=== PATIENT | female | born 1955 | race Caucasian/White ===

== ENCOUNTER 2021-04-25 00:04 | Observation (INO) | payer MEDICARE, BC ==
[~2021-04-25] VITALS: Ht 167.6 cm; Wt 109.0 kg
--- NOTE | 2021-04-25 00:09 | NUR ---
MOVED TO ROOM 6 FOR TRIAGE.
[2021-04-25 00:48] LABS: HEMATOCRIT 37.8 % (37.0-47.0); HEMOGLOBIN 12.5 g/dl (12.0-16.0); IMMATURE GRANULOCYTES 0.1 % (0.0-5.0); MEAN CELL VOLUME 95.5 fL CALC (80.0-100.0); MEAN CORPUSCULAR HGB 31.6 pG CALC (26.0-32.0); MEAN CORPUSCULAR HGB CONC 33.1 g/dL CAL (32.0-36.0); NEUT# 3.61 thou/uL (2.00-7.15); RED BLOOD COUNT 3.96 mill/uL (4.20-5.60); RED CELL DISTRI WIDTH 12.6 % (11.5-15.5)
--- NOTE | 2021-04-25 00:53 | NUR ---
Reassessment of patient completed. No distress noted.
[2021-04-25 01:08] LABS: D-DIMER 0.47 mg/L (0.19-0.60); PROTHROMBIN TIME 10.1 SECONDS (9.0-12.5)
[2021-04-25 01:10] LABS: ALBUMIN 3.8 g/dL (3.2-5.0); ALKALINE PHOSPHATASE 68 u/l (38-126); AMYLASE 50 u/l (30-110); ANION GAP 12 (6-22 (CALC)); BILIRUBIN, TOTAL 0.8 mg/dL (0.0-1.4); BUN 15 mg/dL (8-23); BUN/CREATININE RATIO 24 (12-20 (CALC)); CARBON DIOXIDE 25 mmol/l (22-30); CHLORIDE 105 mmol/l (95-108); CREATININE 0.6 mg/dL (0.5-1.0); GFR > 60 ML/MIN (>=60 (CALC)); GFR FOR AFR.AMER. > 60 ML/MIN (>=60 (CALC)); LIPASE 193 u/l (23-300); POTASSIUM 3.7 mmol/l (3.5-5.1); SGOT/AST 21 u/l (9-36); SODIUM 138 mmol/l (137-146); TOTAL PROTEIN 6.7 g/dL (6.3-8.2)
[2021-04-25] MEDS ORDERED: LISINOP/HCTZ1 TAB PO (01:16)
--- NOTE | 2021-04-25 01:18 | NUR ---
Reassessment of patient completed. No distress noted. PT ON PHONE. PAIN IS DECREASED
[2021-04-25 01:19] LABS: MYOGLOBIN 28 ng/mL (0 - 62)
--- NOTE | 2021-04-25 02:03 | NUR ---
Reassessment of patient completed. No distress noted. PT RESTING QUEITLY IN GURNEY, AT BEDSIDE.
[2021-04-25] MEDS ORDERED: CRESTOR5 M1 PO (02:41)
--- NOTE | 2021-04-25 02:46 | NUR ---
Admission Note Report Given to: JOSÉ MIGUEL REYNOSO Transported by: X Wheelchair Stretcher Transported with: X Nurse Transporter X Patent IV O2 X Food Counter Attendant Location: ICU X MS2
[2021-04-25 03:05] VITALS: BP 148/81
--- NOTE | 2021-04-25 03:35 | NUR ---
RECEIVED PATIENT TO ROOM 268 VIA WC AND PERSONELL IN STABLE CONDITION. ORIENTED TO ROOM AND CALL LIGHT SYSTEM. ASSESSMENT AND AMISSION PAPERWORK COMPLETE. ALERT AND ORIENTED X3. ABLE TO MAKE NEEDS KNOWN. RESPIRATIONS EASY ON ROOM AIR. ON TELEMETRY RUNNING SR. ABDOMEN SOFT ROUND BS +4 HYPOACTIVE. REPORTS HAVING BM JUST BEFORE COMING TO ED TONIGHT (04/24). SKIN WARM DRY AND INTACT. VAD #20 RH S/L. ABLE TO MOVE ALL EXTREMITIES. ABLE TO DO SELF CARE. PEDAL PULSES PALPABLE B/L. FALL PRECAUTIONS IN PLACE. BED IN LOW POSITION. CALL LIGHT WITHIN REACH.
[2021-04-25 06:17] LABS: CHOLESTEROL HDL RATIO 3.2 (<4.4 (CALC))
[2021-04-25 07:20] VITALS: BP 123/73
--- NOTE | 2021-04-25 08:00 | NUR ---
ASSESSMENT IS COMPLETED: IV SITE IS FREE FROM REDNESS OR EDEMA. HR IS REG,PULSES ARE STRONG X4, ABD IS SOFT WITH ACTIVE BS. TELE MONITOR IN PLACE. CONTINUE TO OSBERVE AND MONITOR.
[2021-04-25] MEDS ORDERED: ASPIRIN81 MG PO (09:00)
[2021-04-25 10:28] VITALS: BP 119/77
--- NOTE | 2021-04-25 11:03 | NUR ---
TROPONINS ARE NEGATIVE. WILL GIVE PT HER DISCHARGE INSTRUCTIONS SHORTLY
--- NOTE | 2021-04-25 11:56 | NUR ---
PT IV SITE AND TELE MONITOR OFF. CATHETER INTACT. NO REDNESS OR EDEMA. DISCHARGE INSTRUCTIONS GIVEN AND VERBALIZED UNDERSTANDING. PT AMBULATED OFF THE UNIT TO GO DOWNSTAIRS TO MEET HER . Discharge instructions given. Patient verbalizes understanding of same. Discharged in stable condition via Ambulatory to Home with family. All belongings sent with pt.
== END 2021-04-25 11:54 | disposition home or self-care (01) ==
LOC: ED 00:04 → ED-I 01:39 → ED 01:52 → MS2 01:53
PROVIDERS: Family Medicine; ADMIT Internal Medicine; ATTEND Internal Medicine
DX: R07.9 Chest pain, unspecified (principal); I10 Essential (primary) hypertension; E78.5 Hyperlipidemia, unspecified; Z20.822 Contact with and (suspected) exposure to COVID-19
CPT/HCPCS: G0378; J1650

== ENCOUNTER 2022-08-03 09:13 | Emergency (ER) | payer MEDICARE, BC ==
[~2022-08-03] VITALS: Ht 167.6 cm; Wt 109.0 kg
[~2022-08-03 09:13] MED LIST: ASPIRIN81 MG PO; CRESTOR5 M1 PO; LISINOP/HCTZ1 TAB PO
[2022-08-03 09:38] VITALS: BP 139/81
[2022-08-03 10:01] VITALS: BP 148/82
[2022-08-03 12:00] VITALS: BP 148/82
[2022-08-03] MEDS ORDERED: METHOCARBAMOL500 MG PO (12:12)
[2022-08-03] MEDS ORDERED: NAPROXEN500 MG PO (12:12)
== END 2022-08-03 12:00 | disposition home or self-care (01) ==
LOC: ED 09:13
DX: S93.401A Sprain of unspecified ligament of right ankle, initial encounter (principal); S50.02XA Contusion of left elbow, initial encounter; I10 Essential (primary) hypertension; E78.00 Pure hypercholesterolemia, unspecified; W01.0XXA Fall on same level from slipping, tripping and stumbling without subsequent striking against object, initial encounter; Y93.E8 Activity, other personal hygiene; Y92.002 Bathroom of unspecified non-institutional (private) residence as the place of occurrence of the external cause

== ENCOUNTER 2024-07-31 22:17 | Emergency (ER) | payer MEDICARE ==
[~2024-07-31] VITALS: Ht 167.6 cm; Wt 85.0 kg
[2024-07-31] VITALS (7 sets, daily range): BP systolic 134–186; BP diastolic 74–91
[~2024-07-31 22:17] MED LIST changes: +METHOCARBAMOL500 MG PO; +NAPROXEN500 MG PO
[2024-07-31] MEDS ORDERED: hydrALAZINE HCL 10 MG TAB PO ONE (22:30)
[2024-07-31 22:48] LABS: BASO% 0.5 % (0-3); EOS% 0.7 % (0-8); HEMATOCRIT 39.8 % (37.0-47.0); HEMOGLOBIN 13.2 g/dl (12.0-16.0); IMMATURE GRANULOCYTES 0.1 % (0.0-5.0); LYMPH% 33.7 % (15-41); MEAN CELL VOLUME 95.9 fL CALC (80.0-100.0); MEAN CORPUSCULAR HGB 31.8 pG CALC (26.0-32.0); MEAN CORPUSCULAR HGB CONC 33.2 g/dL CAL (32.0-36.0); MONO% 12.5 % (2-13); NEUT# 4.26 thou/uL (2.00-7.15); NEUT% 52.5 % (42-76); RED BLOOD COUNT 4.15 mill/uL (4.20-5.60); RED CELL DISTRI WIDTH 13.1 % (11.5-15.5)
[2024-07-31 23:17] LABS: ANION GAP 11 (6-22 (CALC)); BUN 18 mg/dL (8-23); BUN/CREATININE RATIO 28 (12-20 (CALC)); CARBON DIOXIDE 24 mmol/l (22-30); CHLORIDE 110 mmol/l (95-108); CREATININE 0.7 mg/dL (0.5-1.0); ESTIMATED GFR 93 ML/MIN (>=90 (CALC)); POTASSIUM 3.9 mmol/l (3.5-5.1); SODIUM 141 mmol/l (137-146)
[2024-08-01 00:01] VITALS: BP 136/78
[2024-08-01 00:09] VITALS: BP 136/78
== END 2024-08-01 00:10 | disposition home or self-care (01) ==
LOC: ED 22:17
PROVIDERS: Family Medicine
DX: I10 Essential (primary) hypertension (principal); E78.00 Pure hypercholesterolemia, unspecified